=== PATIENT | male | born 1965 | race Caucasian/White ===

== ENCOUNTER 2019-05-09 10:08 | Emergency (ER) | payer BC, OTHER ==
[~2019-05-09] VITALS: Ht 180.3 cm; Wt 117.9 kg
[2019-05-09 10:27] VITALS: BP 152/94
--- NOTE | 2019-05-09 10:29 | NUR ---
Triage Brought to ER room 5 and monitors applied. Patient is here visiting from [facility]. He started having knee pain in the left knee last night. He has hx of knee surgeries over 20 years ago. Vital signs are within normal limits. Notified doctor of patient's arrival. Will f/u with further orders. lw
--- NOTE | 2019-05-09 10:52 | ER.PDOC ---
General Chief Complaint: Extremities Stated Complaint: LEFT KNEE SWOLLEN/PAINFUL Time seen by MD: 10:35 Source: patient Exam Limitations: no limitations History of Present Illness Initial Comments Pt reports L knee pain that started when getting off flight last night from [place]. Is unsure if he twisted it, but felt like he was "dragging it around". Denies weakness, justs hurt to walk on it. Had some swelling last night, but that got better this morning after sleeping. Pain is on medial/posterior portion of the knee. No redness or rash reported. Exacerbated By: walking movement Relieved By: rest Prior symptoms/Treatment: No Similar symptoms previous, No Recenly Seen, No Treated by Doctor Allergies: Coded Allergies: No Known Drug Allergies (Verified Allergy, Unknown, 05/09/19) Past Medical History Medical History: high cholesterol, hypertension Surgical History: cholecystectomy, knee Family History Significant Family History: no pertinent family hx Social History Smoking: non-smoker, quit less than 1 year Alcohol Use: occassionally Drug Use: none Review of Systems EENTM: no symptoms reported Respiratory: no symptoms reported Cardiovascular: no symptoms reported Gastrointestinal: no symptoms reported Musculoskeletal: see HPI; denies back pain, denies gout, denies muscle stiffness, denies neck pain Skin: no symptoms reported All Other Systems: Reviewed and Negative Physical Exam General Appearance: Alert, No Apparent Distress Lower Extremity: no pedal edema, tenderness (L knee, along medial joint line. No effusions or diffuse tenderness noted) Joint Exam: nml ROM, antalgic gait (mild) Vascular: no vascular compromise, pulses full/equal Neuro/Psych: sensation nml, motor nml, oriented x3 Skin: color nml, warm/dry, no rash Back/Neck: nml inspection Respiratory: no resp distress Results/Orders Results/Orders Orders - PROSPER DILLON DO Xr Knee Lt 2v (05/09/19 10:38) Vital Signs Date Time Temp Pulse Resp B/P (MAP) Pulse Ox O2 Delivery O2 Flow Rate FiO2 05/09/19 12:03 60 18 136/82 (100) 98 Room Air 05/09/19 10:27 97.8 64 18 152/94 (113) 99 Room Air 05/09/19 10:24 97.8 64 18 99 Room Air Progress Progress PROCEDURE:XRAY KNEE 2 VWS-LT COMPARISON:None. INDICATIONS:L knee pain FINDINGS:AP and lateral view of the left knee BONES:No evidence of acute fracture. There are metallic screws seen compatible with prior ACL repair. JOINTS:No dislocation. No joint effusion. SOFT TISSUES:Normal. OTHER:No additional findings. CONCLUSION:No evidence of acute fracture. No joint effusion. Findings compatible with prior surgery. Dictated by: Hill Steinberg MD on 05/09/2019 at 12:07 PM Departure Time of Disposition: 12:10 Disposition: 01 HOME, SELF-CARE Impression: Primary Impression: Left knee sprain Condition: Stable Referrals: PCP,UNKNOWN (PCP) PRIMARY CARE PROVIDER Duration or Time Spent with Pa: 30 Problem Qualifiers Primary Impression: Left knee sprain Encounter type: initial encounter Involved ligament of knee: unspecified ligament Qualified Codes: S83.92XA - Sprain of unspecified site of left knee, initial encounter PROSPER DILLON DO May 09, 2019 10:52
[2019-05-09 12:03] VITALS: BP 136/82
--- NOTE | 2019-05-09 12:10 | DIREP ---
PROCEDURE:XRAY KNEE 2 VWS-LT COMPARISON:None. INDICATIONS:L knee pain FINDINGS:AP and lateral view of the left knee BONES:No evidence of acute fracture. There are metallic screws seen compatible with prior ACL repair. JOINTS:No dislocation. No joint effusion. SOFT TISSUES:Normal. OTHER:No additional findings. CONCLUSION:No evidence of acute fracture. No joint effusion. Findings compatible with prior surgery. Dictated by: Hill Steinberg MD on 05/09/2019 at 12:07 PM
== END 2019-05-09 12:18 | disposition home or self-care (01) ==
LOC: ER 10:08
DX: S83.92XA Sprain of unspecified site of left knee, initial encounter (principal); I10 Essential (primary) hypertension; E78.00 Pure hypercholesterolemia, unspecified; Z90.49 Acquired absence of other specified parts of digestive tract; X58.XXXA Exposure to other specified factors, initial encounter; Y93.89 Activity, other specified; Y92.89 Other specified places as the place of occurrence of the external cause; Y99.8 Other external cause status
CPT/HCPCS: 99283; 73560-LT